=== PATIENT | male | born 1955 | race Native Hawaiian/Other Pacific Islander ===

== ENCOUNTER 2018-12-14 08:43 | Outpatient (CLI) | payer OTHER | END 2018-12-14 09:13 | disposition short-term general hospital (02) | LOC: AMB 08:43 | DX: M25.551 Pain in right hip (principal); W17.89XA Other fall from one level to another, initial encounter; Y93.89 Activity, other specified; Y92.89 Other specified places as the place of occurrence of the external cause | CPT/HCPCS: A0425; A0427 ==